=== PATIENT | male | born 1990 | race Caucasian/White ===

== ENCOUNTER 2019-11-24 11:01 | Emergency (ER) | payer MEDICARE ==
[~2019-11-24] VITALS: Ht 172.7 cm; Wt 80.0 kg
[2019-11-24] MEDS ORDERED: ibuprofen tablet 400 MG TABLET PO ONE (11:20)
[2019-11-24 12:10] VITALS: BP 138/84
== END 2019-11-24 12:12 | disposition home or self-care (01) ==
LOC: ER 11:02
DX: S63.501A Unspecified sprain of right wrist, initial encounter (principal); S60.021A Contusion of right index finger without damage to nail, initial encounter; S60.031A Contusion of right middle finger without damage to nail, initial encounter; S60.041A Contusion of right ring finger without damage to nail, initial encounter; X58.XXXA Exposure to other specified factors, initial encounter; Y93.89 Activity, other specified; Y92.89 Other specified places as the place of occurrence of the external cause; Y99.8 Other external cause status
CPT/HCPCS: 29125; 73110; 73130; 99284